=== PATIENT | male | born 1985 | race Caucasian/White ===

== ENCOUNTER 2020-03-17 23:52 | Emergency (ER) | payer SELFPAY ==
--- NOTE | 2020-03-18 00:39 | RADIOLOGY REPORT (SQ) ---
EXAM DESCRIPTION: XR WRIST 3 OR MORE VIEWS COMPLETED DATE/TME: 03/18/2020 00:00 CLINICAL HISTORY: 35 years, Male, pain with movement, swelling COMPARISON: None. NUMBER OF VIEWS: 4 TECHNIQUE: 4 views right wrist LIMITATIONS: None. FINDINGS: Negative for acute fracture or dislocation. Soft tissues are unremarkable IMPRESSION: Negative exam copyright 2011 [employer]- All Rights Reserved
--- NOTE | 2020-03-18 01:14 | ER Document Report ---
ED General - General Chief Complaint: Wrist Pain Stated Complaint: ARM/HAND PAIN Time Seen by Provider: 03/18/20 01:00 Mode of Arrival: Ambulatory Information source: Patient Notes: Patient is a 35-year-old male coming in today with some problems with his right hand and wrist. He has some pain and swelling at the base of the fifth metacarpal. Feels like it gets locked up in the wrong position and has to be pushed back into the appropriate position. He does have some history of repetitive motion usage. No trauma. At the time of exam his wrist x-ray is negative. TRAVEL OUTSIDE OF THE [place] IN LAST 30 DAYS: No - Related Data Allergies/Adverse Reactions: acetaminophen [From Vicodin] Allergy (Verified 03/18/20 00:03) hydrocodone [From Vicodin] Allergy (Verified 03/18/20 00:03) Penicillins Allergy (Verified 03/18/20 00:03) Home Medications: vraylar. zoloft. wellbutrin Past Medical History - Social History Smoking Status: Current Every Day Smoker Family History: Reviewed & Not Pertinent - Immunizations Hx Diphtheria, Pertussis, Tetanus Vaccination: Yes Review of Systems - Review of Systems Notes: Constitutional: No fevers. No chills. EENT: No eye redness. No eye pain. No ear pain. No sore throat. Cardiovascular: No chest pain. No palpitations. Respiratory: No cough. No shortness of breath. No respiratory distress. Gastrointestinal: No abdominal pain. No nausea, vomiting, or diarrhea. Genitourinary: Atraumatic. No lesions. No pain. No discharge. Musculoskeletal: Positive for pain in the right hand and wrist Skin: No rash or lesions. Lymphatic: No swollen lymph nodes. Neurologic: No headache. No syncope. Psychiatric: No suicidal or homicidal ideation. Physical Exam - Vital signs Vitals: Temp Pulse Resp BP Pulse Ox 98.2 F 92 18 139/88 H 99 03/18/20 00:02 03/18/20 00:02 03/18/20 00:02 03/18/20 00:02 03/18/20 00:02 - Notes Notes: General: Well-developed, well-nourished. In no acute distress. Non-toxic appearing. Cardiac: Well-perfused. Regular rate and rhythm. No murmurs, rubs, or gallops. Pulmonary: No respiratory distress. No cyanosis. Bilateral lung fiels are clear to auscultation. Abdominal: Non-distended. Non-rigid. Bowels sounds are present in all four quadrants. No guarding or rebound. HEENT: Head is atraumatic. Conjunctivae not reddened. No tearing. PERRL. EOMI. Orbits atraumatic. No periorbital swelling or erythema. Oropharynx is without erythema, swelling, or exudates. Neck: Supple. No adenopathy. No meningismus. Dermatologic: Warm with good turgor. No rash. Atraumatic. Chest: Atraumatic. No chest wall tenderness to palpation. Musculoskeletal: There is some mild tenderness to palpation at the base of the right fifth metacarpal. No bony deformities. Distal neurovascular exam intact. Genitourinary: Examination deferred Neurologic: No gross neurologic deficits. Psychiatric: Normal mood. Course - Re-evaluation Re-evalutation: 03/18/20 01:11 Plain films of the right wrist does not show any acute abnormality but I suspect patient may have a tendinitis. We will put him in a Velcro wrist splint and put him on naproxen for now. Follow-up as an outpatient with Dr. lopez - Vital Signs Vital signs: Temp Pulse Resp BP Pulse Ox 98.2 F 92 18 139/88 H 99 03/18/20 00:02 03/18/20 00:02 03/18/20 00:02 03/18/20 00:02 03/18/20 00:02 Discharge - Discharge Clinical Impression: Right wrist tendinitis Condition: Good Disposition: HOME, SELF-CARE Instructions: Tendonitis ([facility]) Prescriptions: Naproxen 500 mg PO BID 5 Days #10 tablet Referrals: JOSÉ MIGUEL MCGRAW DO [ACTIVE STAFF] - Follow up as needed
[2020-03-18 01:24] VITALS: BP 132/87
== END 2020-03-18 01:24 | disposition home or self-care (01) ==
LOC: ER 23:52
DX: M77.8 Other enthesopathies, not elsewhere classified (principal); F17.200 Nicotine dependence, unspecified, uncomplicated; Z79.899 Other long term (current) drug therapy; Z88.8 Allergy status to other drugs, medicaments and biological substances; Z88.6 Allergy status to analgesic agent; Z88.5 Allergy status to narcotic agent; Z88.0 Allergy status to penicillin
CPT/HCPCS: 99283